=== PATIENT | male | born 1955 | race Caucasian/White ===

== ENCOUNTER → 2017-04-28 | Outpatient (REF) ==
[~2017-04-28] MED LIST: COREG 25MG25 MG/TAB PO; DEXILANT60 MG PO; ZESTRIL 20MG TA20 MG PO
== END ==
LOC: ZLAB.WCH 18:07
DX: Z01.89 Encounter for other specified special examinations (principal)

== ENCOUNTER → 2017-09-03 | Outpatient (REF) ==
[2017-09-03 17:19] LABS: PSA-TOTAL 1.16 ng/mL (0-4)
[2017-09-03 17:24] LABS: THYROID STIMULATING HORMONE 3.36 uIU/mL (0.465-4.680)
== END ==
LOC: ZLAB.WCH 15:56
PROVIDERS: Internal Medicine
DX: Z01.89 Encounter for other specified special examinations (principal)
CPT/HCPCS: G0103